=== PATIENT | female | born 1945 | race Caucasian/White ===

== ENCOUNTER 2024-02-06 13:52 | Outpatient (RCR) | payer MEDICARE, OTHER, SELFPAY | END 2024-02-06 23:59 | disposition home or self-care (01) | LOC: RPT 13:52 | PROVIDERS: ATTENDING PHYSICIAN Student in an Organized Health Care Education/Training Program | DX: H81.10 Benign paroxysmal vertigo, unspecified ear (principal); Z73.6 Limitation of activities due to disability | CPT/HCPCS: 97110; 97112; 97162; 97530 ==

== ENCOUNTER 2024-03-11 10:05 | Outpatient (RCR) | payer MEDICARE, OTHER, SELFPAY | END 2024-03-11 15:51 | disposition home or self-care (01) | LOC: RPT 10:05 | PROVIDERS: ATTENDING PHYSICIAN Student in an Organized Health Care Education/Training Program | DX: H81.13 Benign paroxysmal vertigo, bilateral (principal); H81.10 Benign paroxysmal vertigo, unspecified ear (principal); Z73.6 Limitation of activities due to disability | CPT/HCPCS: 97110; 97112; 97530 ==

== ENCOUNTER → 2024-08-10 09:43 | Outpatient (REF) | payer MEDICARE, OTHER, SELFPAY | LOC: PAVMRI 09:43 | PROVIDERS: ATTENDING PHYSICIAN Student in an Organized Health Care Education/Training Program | DX: R41.0 Disorientation, unspecified (principal) | CPT/HCPCS: 70551 ==

== ENCOUNTER 2024-09-24 19:40 | Emergency (ER) | payer MEDICARE, OTHER, SELFPAY ==
[2024-09-24 19:44] VITALS: BP 122/82
[2024-09-24 21:40] VITALS: BMI 31.5
[2024-09-24] MEDS: TYLENOL 1000 MG PO (21:52)
--- NOTE | 2024-09-24 22:59 | ED.GENMED ---
History of Present Illness
General
Chief Complaint: Fall
Source: patient and spouse
Exam Limitations: none
Time Seen by Provider: 09/24/24 21:39
History of Present Illness
History of Present Illness:
Note:
CHIEF COMPLAINT(S)
Fall resulting in left shoulder and hip pain.
HISTORY OF PRESENT ILLNESS
The patient is a 79-year-old female who reports falling while getting out of a car due to her shoe getting stuck on the floor, causing her to land on her left shoulder and side. The incident occurred earlier in the day. Currently, she identifies
pain primarily in the left shoulder and the posterior aspect of the left hip. The patient rates the shoulder pain as located near the back rather than the clavicular area. 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
to a lipoma she mentioned having discussed previously with her physician. The patient denies hitting her head, losing consciousness, or experiencing neck pain. She also reports no significant pain while picking up her arm, indicating some range of
motion, although it is painful. She mentions mild tenderness in the trapezius region on the left and posterior tenderness of the left hip.
PHYSICAL EXAM
General: Alert, oriented to person, place, time, and situation, in no acute distress.
Skin: Warm, dry.
Head: Normocephalic, atraumatic.
Neck: Supple, trachea midline, full range of motion with no midline tenderness.
Eye, Ears, Nose, Mouth, and Throat: Oral mucosa moist.
Cardiovascular: Normal peripheral perfusion, no edema.
Respiratory: Respirations are non-labored.
Gastrointestinal: Abdomen nondistended.
Back: Normal alignment; mild tenderness noted in the left trapezius region.
Musculoskeletal: Minor tenderness in the posterior aspect of the left hip; able to flex, extend, and rotate the left hip. Normal form range of motion observed in the left shoulder, with mild tenderness. Right shoulder displays normal function.
Normal range of motion in bilateral hips and knees.
Neurological: Alert and oriented, no focal neurological deficit observed.
Psychiatric: Cooperative, appropriate mood and affect.
PLAN
- X-rays of the pelvis and left shoulder to assess for possible fractures or other injuries.
- Administration of acetaminophen for pain relief.
- Monitor for any changes in symptoms and reassessment following imaging results.
DIFFERENTIAL DIAGNOSIS
The Differential Diagnosis includes, in no particular order and is not limited to:
1. Contusion of the shoulder
2. Rotator cuff injury
3. Acromioclavicular joint injury
4. Pelvic fracture
5. Lumbar vertebral compression fracture
6. Hip contusion
7. Bursitis
8. Lipoma-related discomfort
9. Muscle strain
10. Osteoporosis-related fractures.
Disposition:
SUMMARY OF ENCOUNTER
The patient is a 79-year-old female who presented to the emergency department after a fall, resulting in left shoulder and hip pain. The incident occurred when the patient was getting out of a car and tripped due to her shoe getting stuck on the
floor. On examination, she reported pain primarily in the left shoulder and the posterior aspect of the left hip with burning sensation due to a lipoma. An X-ray was performed on the left shoulder and pelvis. The X-rays showed no fracture in the
shoulder or pelvis but indicated degenerative changes and stabilization hardware in the lumbar region. Due to the absence of fractures and stable examination findings, she was advised on symptomatic care and follow-up.
DISPOSITION
Discharge
ASSESSMENT
The differential diagnosis includes contusion of the shoulder, rotator cuff injury, acromioclavicular joint injury, pelvic fracture, lumbar vertebral compression fracture, hip contusion, bursitis, lipoma-related discomfort, muscle strain, and
osteoporosis-related fractures.
PLAN
- Apply sling to left shoulder for comfort.
- Recommend follow-up care with Orthopedics.
- Advise patient on symptomatic management including ice and rest for the affected areas.
INDEPENDENT REVIEW OF LABS AND INTERPRETATION OF TESTS
- My independent interpretation of the shoulder X-ray shows no fracture; degenerative changes are noted.
- My independent interpretation of the pelvis X-ray shows no fracture; right hip replacement and lumbar stabilization hardware noted without acute changes.
PATIENT EDUCATION AND COUNSELING
- Advised on the use of a sling for comfort.
- Instructed on the importance of rest and applying ice to manage pain and reduce swelling.
- Discussed the need to follow up with an payroll accounting specialist for further assessment and management.
FOLLOW-UP INSTRUCTIONS
- Please follow up with orthopedics as soon as possible for further evaluation and management.
MEDICATION RECONCILIATION
- Acetaminophen was recommended for pain relief.
MEDICAL DECISION MAKING
- Chronic conditions affecting care include potential degenerative changes and the presence of existing stabilization hardware.
- Data:
- Category 1: Reviewed and interpreted shoulder and pelvis X-rays.
- Risk: Prescription medication was prescribed. Consideration of admission/observation was deemed unnecessary as the patients work-up was reassuring, without any life-threatening findings. The patient is deemed safe for outpatient management with
close follow-up.
DIAGNOSIS
- Shoulder contusion (S40.0XXA)
- Hip contusion (S70.0XXA)
- Lipoma-related discomfort (D17.4)
Phy Exam
Physical Exam
Physical Exam:
.
Course
Orders/Labs/Results
Orders:
Orders
09/24/24 21:49
Acetaminophen [Tylenol] 1,000 mg PO NOW STA
Pelvis, 1 or 2 Views CR [CR Pelvis - 1 Or 2 Views ] Urgent
Comment:
Reason For Exam: fall
Shoulder, Left, Trauma CR [CR Shoulder, Trauma - Left] Urgent
Comment:
Reason For Exam: fall
Vital Signs
Initial and Last Documented VS:
Initial Vital Signs
Temp Pulse Resp BP Pulse Ox
97.9 F 61 16 122/82 98
09/24/24 19:44 09/24/24 19:44 09/24/24 19:44 09/24/24 19:44 09/24/24 19:44
Last Documented Vital Signs
Temp Pulse Resp BP Pulse Ox
97.9 F 61 16 122/82 98
09/24/24 19:44 09/24/24 19:44 09/24/24 19:44 09/24/24 19:44 09/24/24 19:44
*Pulse Oximetry
SaO2: 98
Oxygen Mode of Delivery: Room air
Patient hypoxic: no
*Critical Care Note
Total Time (30-74mins, 75-104mins- exclusive of procedures): Not Applicable
ED Attending Note
-
Portions of this chart may have been created with voice recognition software.� Occasional wrong word or��sound alike� substitutions may have occurred due to the inherent limitations of voice recognition software.
Discharge Plan
Departure
Patient Disposition: Home (Routine Discharge)
Date of Disposition: 09/24/24
Time of Disposition: 23:00
Patient with high blood pressure during this ER visit?: No
Discharge Problem:
Injury of shoulder, left, Fall
Instructions: Contusion (DC)
Referrals:
Oneil Cruz DO [Family Provider]
Activity Restrictions/Additional Instructions:
Shoulder injury
Please ice and rest your injured parts. Use Tylenol as needed for pain control. Please see orthopedics in follow-up in the next 3 to 5 days.
Interventions
Interventions:
*Risk Screen - Suicide Last Done: 09/24/24 19:44
*General Assessment Last Done: 09/24/24 19:44
*Neglect/Abuse Screening Last Done: 09/24/24 21:41
*ED- Fall Risk Assessment Last Done: 09/24/24 21:41
*ED COVID-19 Vaccine History Last Done: 09/24/24 21:41
ED-Musculoskeletal Assessment Last Done: 09/24/24 21:41
ED- Neurological Assessment Last Done: 09/24/24 21:41
ED-Skin Assessment Last Done: 09/24/24 21:41
Discharge Date and Time
Print Language: FRISIAN
[2024-09-24 23:45] VITALS: BP 159/72
== END 2024-09-24 23:56 | disposition home or self-care (01) ==
LOC: EMR 19:40
PROVIDERS: EMERGENCY PHYSICIAN Emergency Medicine; FAMILY PHYSICIAN Student in an Organized Health Care Education/Training Program
DX: S40.012A Contusion of left shoulder, initial encounter (principal); S70.02XA Contusion of left hip, initial encounter; V48.4XXA Person boarding or alighting a car injured in noncollision transport accident, initial encounter; D17.9 Benign lipomatous neoplasm, unspecified
CPT/HCPCS: 99284; 72170; 73030

== ENCOUNTER 2024-11-04 17:50 | Emergency (ER) | payer MEDICARE, OTHER, SELFPAY ==
[2024-11-04] MEDS: ROXICODONE 5 MG PO (21:36)
[2024-11-04 21:39] VITALS: BMI 32.2
[2024-11-04 21:41] VITALS: BP 166/66
--- NOTE | 2024-11-04 22:45 | ED.GENMED ---
History of Present Illness
<Carrington Montiel PA-C - Last Filed: 11/04/24 23:01>
General
Chief Complaint: Musculo-Skeletal Complaint
Time Seen by Provider: 11/04/24 21:18
History of Present Illness
History of Present Illness:
79-year-old female presents to the emergency department for evaluation of right hip pain, nontraumatic. Has a history of right total hip replacement and is awaiting a revision procedure. She has been having increasing pain recently but today she
attempted to turn when she felt sudden pain in the lateral hip. She is not able to bear weight secondary to pain. No fall or distal paresthesias.
Review of Systems
<Carrington Montiel PA-C - Last Filed: 11/04/24 23:01>
Review of Systems
Allergies reviewed?: Yes
All Other Systems: ROS reviewed and negative except as documented in HPI and ROS
Phy Exam
<Carrington Montiel PA-C - Last Filed: 11/04/24 23:01>
Physical Exam
Physical Exam:
GEN: Well appearing, NAD, WDWN
HEENT: Oral mucosa moist, no scleral icterus
Cardiac: Regular rate
Lung: No respiratory distress, no tachypnea
MSK: No gross deformity or injuries. Passive range of motion of the right hip is normal in all guerra, no crepitus, no pain elicited. There is focal tenderness to the right greater trochanter
Skin: Good color, no pallor or jaundice, no rashes
Neuro: AO x3, moves all extremities freely
Psych: Calm, cooperative
Course
<Carrington Montiel PA-C - Last Filed: 11/04/24 23:01>
Orders/Labs/Results
Orders:
Orders
11/04/24 18:00
Hip, Right 2-3 Views [CR Hip - RT w/wo Pel 2-3 Vw*] Urgent
Comment:
Reason For Exam: pain, no injury
Include a pelvis x-ray?: Yes
11/04/24 21:31
Oxycodone [Roxicodone] 5 mg PO NOW STA
11/04/24 23:00
CT Pelvis W/o Iv Contrast Urgent
Comment:
Reason For Exam: R hip pain, neg XR
Vital Signs
Initial and Last Documented VS:
Initial Vital Signs
Temp Pulse Resp Pulse Ox
98.5 F 63 16 98
11/04/24 17:57 11/04/24 17:57 11/04/24 17:57 11/04/24 17:57
Last Documented Vital Signs
Temp Pulse Resp BP Pulse Ox
98.5 F 63 16 166/66 98
11/04/24 17:57 11/04/24 21:41 11/04/24 21:41 11/04/24 21:41 11/04/24 22:47
<Kelvin Cho PA-C - Last Filed: 11/06/24 06:09>
Orders/Labs/Results
Orders:
Orders
11/04/24 18:00
Hip, Right 2-3 Views [CR Hip - RT w/wo Pel 2-3 Vw*] Urgent
Comment:
Reason For Exam: pain, no injury
Include a pelvis x-ray?: Yes
11/04/24 21:31
Oxycodone [Roxicodone] 5 mg PO NOW STA
11/04/24 23:00
CT Pelvis W/o Iv Contrast Urgent
Comment:
Reason For Exam: R hip pain, neg XR
Vital Signs
Initial and Last Documented VS:
Initial Vital Signs
Temp Pulse Resp Pulse Ox
98.5 F 63 16 98
11/04/24 17:57 11/04/24 17:57 11/04/24 17:57 11/04/24 17:57
Last Documented Vital Signs
Temp Pulse Resp BP Pulse Ox
98.5 F 63 16 166/66 98
11/04/24 17:57 11/04/24 21:41 11/04/24 21:41 11/04/24 21:41 11/04/24 22:47
<Carrington Montiel PA-C - Last Filed: 11/04/24 23:01>
MDM/Problems Addressed
MDM/Problems Addressed:
Suspect acute trochanteric bursitis, x-ray showed no evidence for periprosthetic fracture or hardware displacement. Patient unable to walk, given that she recently went left shoulder surgery hesitant to do an intrabursal steroid injection. Patient
will be trialed with ambulation after opiates, if opiates hide no significant benefit will obtain CT scan for completeness
<Carrington Montiel PA-C - Last Filed: 11/04/24 23:01>
*Pulse Oximetry
SaO2: 98
Oxygen Mode of Delivery: Room air
<Kelvin Cho PA-C - Last Filed: 11/06/24 06:09>
*Radiology
Radiology exam reviewed: radiology read reviewed
*Pulse Oximetry
Patient hypoxic: no
*Critical Care Note
Total Time (30-74mins, 75-104mins- exclusive of procedures): Not Applicable
<Kelvin Cho PA-C - Last Filed: 11/06/24 06:09>
Patient Management
Escalation/DeEscalation of care consider admission/obs:
Patient received in signout pending CT scan of the pelvis. CT came back without any acute fractures seen. Patient was ambulatory here without difficulty. Prescription for Percocet sent to pharmacy. She will follow-up with her orthopedist as
needed.
ED Attending Note
<Carrington Montiel PA-C - Last Filed: 11/04/24 23:01>
-
Portions of this chart may have been created with voice recognition software.� Occasional wrong word or��sound alike� substitutions may have occurred due to the inherent limitations of voice recognition software.
Discharge Plan
Departure
Patient Disposition: Home (Routine Discharge)
Date of Disposition: 11/05/24
Time of Disposition: 00:46
Patient with high blood pressure during this ER visit?: Yes
Discharge Problem:
Bursitis of right hip
Instructions: Hip pain - ED (DC)
Prescriptions:
New
oxycodone-acetaminophen [Percocet] 5-325 mg tablet
1 tab PO Q6HPRN PRN (Reason: pain) Qty: 6 0RF
Referrals:
Oneil Cruz DO [Family Provider]
Didier Garcia MD [Active, Orthopedics]
Interventions
Interventions:
*Risk Screen - Suicide Last Done: 11/04/24 21:39
*General Assessment Last Done: 11/04/24 21:39
*Neglect/Abuse Screening Last Done: 11/04/24 21:39
*ED- Fall Risk Assessment Last Done: 11/04/24 21:39
*ED COVID-19 Vaccine History Last Done: 11/04/24 21:39
*Nursing Disposition Last Done: 11/05/24 00:50
ED-Musculoskeletal Assessment Last Done: 11/04/24 21:39
Discharge Date and Time
Discharge Date/Time: 11/05/24 01:18
Print Language: EQUATORIAL GUINEAN
--- NOTE | 2024-11-04 23:00 | EDRN ---
Patient was able to ambulate after pain medication, however still thinks she may have a fracture so plan is for patient to get a CT done for further imaging.
--- NOTE | 2024-11-04 23:15 | EDRN ---
Patient transferred into wheelchair to go into the restroom, was able to transfer without difficulty
== END 2024-11-05 01:18 | disposition home or self-care (01) ==
LOC: EMR 17:50
PROVIDERS: EMERGENCY PHYSICIAN Emergency Medicine; FAMILY PHYSICIAN Student in an Organized Health Care Education/Training Program
DX: M70.71 Other bursitis of hip, right hip (principal); Z96.641 Presence of right artificial hip joint
CPT/HCPCS: 99284; 72192; 73502